=== PATIENT | female | born 1960 | race Two or more races ===

== ENCOUNTER 2021-09-05 13:49 | Emergency (ER) | payer OTHER ==
[~2021-09-05] VITALS: Ht 154.9 cm; Wt 69.8 kg
[2021-09-05 14:51] LABS: CLARITY,URINE TURBID
[2021-09-05 14:57] LABS: COLOR,URINE RED
[2021-09-05 14:58] LABS: RBC,URINE TNTC /HPF (0-2)
[2021-09-05 15:00] LABS: BACTERIA,URINE MODERATE /HPF (0-FEW)
[2021-09-05 15:02] LABS: WBC,URINE >40 /HPF (0-4)
[2021-09-05] MEDS ORDERED: IV NORMAL SALINE 1000ML BAG 1,000 ML IV SCH (15:15)
--- NOTE | 2021-09-05 15:52 | PHYS DOC ---
Past Medical History Past Medical History: No Pertinent History Past Surgical History: No Surgical History Smoking Status: Never Smoker Alcohol Use: None Drug Use: None General Adult EDM: Chief Complaint: BLOOD IN URINE HPI: HPI: Patient is a 60 year old female who presents with 2 days of burning with urinat ion, low mid abdominal pain with urinating, hematuria and today started having chills. Rates her pain around a 6 out of 10 but states it is worse with urination. Denies nausea, vomiting, diarrhea, actual fever, dizziness, headache, chest pain, numbness or tingling, shortness of air. Review of Systems: Review of Systems: Constitutional: Denies fever or +chills. [] Eyes: Denies change in visual acuity. [] HENT: Denies nasal congestion or sore throat. [] Respiratory: Denies cough or shortness of breath. [] Cardiovascular: Denies chest pain or edema. [] GI: + Lower mid abdominal pain, denies nausea, vomiting, bloody stools or diarrhea. [] : +dysuria. +Hematuria Musculoskeletal: Denies back pain or joint pain. [] Integument: Denies rash. [] Neurologic: Denies headache, focal weakness or sensory changes. [] Endocrine: Denies polyuria or polydipsia. [] Lymphatic: Denies swollen glands. [] Psychiatric: Denies depression or anxiety. [] Heart Score: C/O Chest Pain: No Current Medications: Current Medications Medications (Trade) Dose Ordered Sig/Dilan Start Time Stop Time Status Last Admin Dose Admin Sodium Chloride 1,000 ml @ 1,000 mls/hr Q1H 09/05/21 15:15 09/05/21 16:14 Allergies: Allergies: Allergies Coded Allergies Type Severity Reaction Last Updated Verified No Known Drug Allergies 07/22/14 No Physical Exam: PE: Constitutional: Well developed, well nourished, no acute distress, non-toxic appearance. [] HENT: Normocephalic, atraumatic, bilateral external ears normal, oropharynx moist, no oral exudates, nose normal. [] Eyes: PERRLA, EOMI, conjunctiva normal, no discharge. [] Neck: Normal range of motion, no tenderness, supple, no stridor. [] Cardiovascular:Heart rate regular rhythm, no murmur [] Lungs & Thorax: Bilateral breath sounds clear to auscultation [] Abdomen: Bowel sounds normal, soft, low mid tenderness, no masses, no pulsatile masses. [] Skin: Warm, dry, no erythema, no rash. [] Back: No tenderness, no CVA tenderness. [] Extremities: No tenderness, no cyanosis, no clubbing, ROM intact, no edema. [] Neurologic: Alert and oriented X 3, normal motor function, normal sensory function, no focal deficits noted. [] Psychologic: Affect normal, judgement normal, mood normal. [] Current Patient Data: Labs: Laboratory Tests Test 09/05/21 14:42 Urine Collection Type Void Urine Color Red Urine Clarity Turbid Urine pH (<5.0-8.0) Urine Specific [place] (1.000-1.030) Urine Protein mg/dL (NEG-TRACE) Urine Glucose (UA) mg/dL (NEG) Urine Ketones (Stick) mg/dL (NEG) Urine Blood (NEG) Urine Nitrite (NEG) Urine Bilirubin (NEG) Urine Urobilinogen Dipstick mg/dL (0.2 mg/dL) Urine Leukocyte Esterase (NEG) Urine RBC Tntc /HPF (0-2) Urine WBC >40 /HPF (0-4) Urine Squamous Epithelial Cells Few /LPF Urine Bacteria Moderate /HPF (0-FEW) Urine Mucus Mod /LPF Vital Signs: Vital Signs Date Time Temp Pulse Resp B/P (MAP) Pulse Ox O2 Delivery O2 Flow Rate FiO2 09/05/21 14:50 98.8 84 14 135/81 (99) 100 Room Air 98.8 EKG: EKG: [] Radiology/Procedures: Radiology/Procedures: [] Impression: [facility] [address] [place], [place] [id number] IMAGING REPORT Signed PATIENT: LATASHA MCKEON ACCOUNT: [id number] : 1960 LOCATION: ER AGE: 60 SEX: F EXAM STATUS: PRE ER ORD. PHYSICIAN: ELOISA BRUNER APRN REASON: abdominal pain, urinary symptoms, tenderness PROCEDURE: CT ABDOMEN PELVIS WO CONTRAST PQRS Compliance Statement: One or more of the following individualized dose reduction techniques were utilized for this examination: 1. Automated exposure control 2. Adjustment of the mA and/or kV according to patient size 3. Use of iterative reconstruction technique CT ABDOMEN+PELVIS WO Clinical Indication: Reason: abdominal pain, urinary symptoms, tenderness / Spl. Instructions: / History: Comparison: None. Technique: Helical CT imaging of the abdomen and pelvis is performed without IV or oral contrast. Findings: Evaluation of solid organs and bowel is limited without oral and IV contrast, decreasing sensitivity for detection of pathology. Lung bases are essentially clear. Cardiac size normal. The liver, gallbladder, spleen, pancreas, adrenal glands, and kidneys are normal. The stomach is unremarkable. There is no dilated small bowel. The appendix is normal. No colon wall thickening is seen. No abdominal adenopathy or free fluid. The urinary bladder is normal. There are 3 small calcified uterine fibroids, largest measures 1.7 cm. There is a soft tissue mass of the right adnexa measuring 4.2 cm. The mass may be the right ovary but the right adnexa is asymmetrically enlarged. There is no pelvic free fluid. No acute bone abnormality. 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 IMPRESSION: 1. There is asymmetric enlargement of the right adnexa. Recommend pelvic ultras ound for further evaluation. 2. Small calcified uterine fibroids. 3. No obstructive uropathy. Electronically signed by: Ian Plata MD (09/05/2021 5:07 PM) [facility] DICTATED and SIGNED BY: IAN PLATA MD DATE: 09/05/21 [id number] 0 Course & Med Decision Making: Course & Med Decision Making Pertinent Labs and Imaging studies reviewed. (See chart for details) See HPI. Alert and oriented x4. Ambulatory steady gait. Speaks in full clear sentences. Skin pink warm and dry. Abdomen is soft but tender to the low mid abdomen. Blood work is unremarkable. Urinalysis is bloody and urinalysis could not be completely done due to the bloodiness. No vaginal bleeding. Patient does have urinary symptoms of burning and frequency and pain with the low mid abdomen during urination. She is afebrile. Vital signs are within normal limits. Patient is given Rocephin IV. CT does show an enlarged right ovary but she does not complain of any right lower quadrant pain. I did speak with Dr. Rebolledo concerning the finding on the CT and the care plan. He states that she can follow-up with her primary care doctor for an ultrasound. [] Neeta Disclaimer: Neeta Disclaimer: This electronic medical record was generated, in whole or in part, using a voice recognition dictation system. Departure Departure Impression: Primary Impression: UTI (lower urinary tract infection) Additional Impression: Abnormal radiologic density Disposition: HOME / SELF CARE / HOMELESS Condition: STABLE Referrals: LATASHA BAKER MD (PCP) Patient Instructions: Incidental Abnormal Radiological Finding, Urinary Tract Infection Additional Instructions: Follow-up with your primary care provider or you follow-up with the urologist of your choice. You need to get a ultrasound on your uterus and ovaries soon as possible. Take the medication as prescribed and with food. Drink plenty of fluids. Begin running a fever, vomiting or having severe abdominal pain return emergency room. Scripts Cephalexin (KEFLEX) 500 Mg Capsule 1 CAP PO TID, #30 CAP Prov: ELOISA BRUNER APRN 09/05/21 ELOISA BRUNER APRN Sep 05, 2021 15:52
[2021-09-05 16:08] LABS: BASO # 0.1 x10^3/uL (0.0-0.2); BASO % 1 % (0-3); EOS % 1 % (0-3); HEMATOCRIT 38.3 % (36.0-47.0); HEMOGLOBIN 12.9 g/dL (12.0-15.5); LYMPH # 1.1 x10^3/uL (1.0-4.8); LYMPH % 11 % (24-48); MEAN CORPUSCULAR HEMOGLOBIN 31 pg (25-35); MEAN CORPUSCULAR HGB CONC 34 g/dL (31-37); MEAN CORPUSCULAR VOLUME 91 fL (79-100); MONO # 0.6 x10^3/uL (0.0-1.1); MONO % 6 % (0-9); NEUT # 8.3 x10^3/uL (1.8-7.7); NEUT % 82 % (31-73); PLATELET COUNT 165 x10^3/uL (140-400); RED BLOOD COUNT 4.19 x10^6/uL (3.50-5.40); RED CELL DISTRIBUTION WIDTH 13.1 % (11.5-14.5); WHITE BLOOD COUNT 10.1 x10^3/uL (4.0-11.0)
[2021-09-05 16:23] LABS: CALCIUM 8.8 mg/dL (8.5-10.1); CREATININE 0.8 mg/dL (0.6-1.0); GFR 73.4; POTASSIUM 3.6 mmol/L (3.5-5.1)
[2021-09-05 16:29] LABS: ALBUMIN 3.8 g/dL (3.4-5.0); TOTAL BILIRUBIN 0.3 mg/dL (0.2-1.0); TOTAL PROTEIN 7.7 g/dL (6.4-8.2)
--- NOTE | 2021-09-05 17:10 | RAD ---
PQRS Compliance Statement: One or more of the following individualized dose reduction techniques were utilized for this examinat ion: 1. Automated exposure control 2. Adjustment of the mA and/or kV according to patient size 3. Use of iterative reconstruction technique CT ABDOMEN+PELVIS WO Clinical Indication: Reason: abdominal pain, urinary symptoms, tenderness / Spl. Instructions: / His tory: Comparison: None. Technique: Helical CT imaging of the abdomen and pelvis is performed without IV or oral contrast. Findings: Evaluation of solid organs and bowel is limited without oral and IV contrast, decreasing sensitivity for detection of pathology. Lung bases are essentially clear. Cardiac size normal. The liver, gallbladder, spleen, pancreas, adrenal glands, and kidneys are normal. The stomach is unremarkable. There is no dilated small bowel. The appendix is normal. No colon wall t hickening is seen. No abdominal adenopathy or free fluid. The urinary bladder is normal. There are 3 small calcified uterine fibroids, largest measures 1.7 cm. There is a soft tissue mass of the right adnexa measuring 4.2 cm. The mass may be the right ovary bu t the right adnexa is asymmetrically enlarged. There is no pelvic free fluid. No acute bone abnormality. 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 IMPRESSION: 1. There is asymmetric enlargement of the right adnexa. Recommend pelvic ultrasound for further eval uation. 2. Small calcified uterine fibroids. 3. No obstructive uropathy. Electronically signed by: Ian Plata MD (09/05/2021 5:07 PM) [facility]
[2021-09-05] MEDS ORDERED: cefTRIAXone IV Push 1 GM VIAL. IVP ONE (17:15)
[2021-09-05] MEDS ORDERED: CEPH500C PO (17:20)
[2021-09-05 18:20] VITALS: BP 113/55
== END 2021-09-05 18:43 | disposition home or self-care (01) ==
LOC: ER 13:49
DX: R10.30 Lower abdominal pain, unspecified (principal); N39.0 Urinary tract infection, site not specified; R93.89 Abnormal findings on diagnostic imaging of other specified body structures
CPT/HCPCS: 36415; 74176; 80053; 81001; 83690; 85025; 96361; 96374; 99284; J0696; J7030